=== PATIENT | male | born 1950 | race Caucasian/White ===

== ENCOUNTER 2018-06-28 10:21 | Day surgery (SDC) | payer BC, OTHER ==
[~2018-06-28] VITALS: Ht 185.4 cm; Wt 83.0 kg
[2018-06-28] MEDS ORDERED: POLYMYXIN 500,000/BACIT.10,000 UNITS in NS IRR 1 L IR ONE (11:54)
[2018-06-28] MEDS ORDERED: LR 1,000 ML IV SCH (12:24)
[2018-06-28] MEDS ORDERED: HYDROcodone/ACETAMIN 5-325 MG TAB (NORCO/ VICODIN) PO PRN (12:30)
[2018-06-28] MEDS ORDERED: MORPHINE 4 MG/ML INJ. SYRINGE IVP PRN ×3 (12:30)
[2018-06-28] MEDS ORDERED: METOCLOPRAMIDE HCL 10 MG/2 ML VIAL IVP PRN (12:30)
[2018-06-28] MEDS ORDERED: SEVOFLURANE 15 MIN GAS INH ONE (12:40)
[2018-06-28] MEDS ORDERED: fentaNYL CITRATE/PF 100 MCG/2 ML AMP ONE (12:40)
[2018-06-28] MEDS ORDERED: CEFAZOLIN 1 GM IVPB PREMIX 50 ML IV ONE (12:40)
[2018-06-28] MEDS ORDERED: GLYCOPYRROLATE 0.2 MG/ML VIAL ONE (12:40)
[2018-06-28] MEDS ORDERED: NEOSTIGMINE METHYLSULFATE 1 MG/ML, 10 ML VIAL ONE (12:40)
[2018-06-28] MEDS ORDERED: NS 250 ML IV.SOLN IV ONE (12:40)
[2018-06-28] MEDS ORDERED: DEXAMETHASONE SOD PHOSPHATE 4 MG/ML VIAL ONE (12:40)
[2018-06-28] MEDS ORDERED: LIDOCAINE/EPI 1% 1:100000 20 ML VIAL INJ ONE (12:40)
[2018-06-28] MEDS ORDERED: OXYMETAZOLINE HCL 0.05% NASAL SPRAY NS ONE (12:40)
[2018-06-28] MEDS ORDERED: ONDANSETRON HCL 4 MG/2 ML VIAL ONE (12:40)
[2018-06-28] MEDS ORDERED: MIDAZOLAM HCL 5 MG/ML VIAL (VERSED) IV ONE (12:40)
[2018-06-28] MEDS ORDERED: PROPOFOL 200MG/ 20ML VIAL (DIPRIVAN) IV ONE (12:40)
[2018-06-28] MEDS ORDERED: BACITRACIN 1 GM OINT TP ONE (12:40)
[2018-06-28] MEDS ORDERED: LR 1,000 ML IV.SOLN IV ONE (12:40)
[2018-06-28] MEDS ORDERED: ROCURONIUM BROMIDE 10 MG/ML (ZEMURON) ONE (12:40)
[2018-06-28] MEDS ORDERED: NS IRRIG SOLN 1000 ML IR ONE (12:40)
[2018-06-28] MEDS ORDERED: PHENYLEPHRINE HCL 10 MG/ML VIAL (NEOSYNEPHRINE) ONE (12:40)
[2018-06-28] MEDS ORDERED: MORPHINE SULFATE 10 MG/ML VIAL ONE (13:51)
[2018-06-28 13:59] VITALS: BP_SYST 127
[2018-06-28] MEDS ORDERED: HYDROcodone/ACETAMIN 5-325 MG TAB (NORCO/ VICODIN) ONE (14:40)
== END 2018-06-28 15:25 | disposition home or self-care (01) ==
LOC: SDS 10:21 → SMU 10:21 → SDS 15:25
PROVIDERS: ATTEND Otolaryngology Plastic Surgery within the Head & Neck
DX: J32.9 Chronic sinusitis, unspecified (principal); Z98.890 Other specified postprocedural states; F17.290 Nicotine dependence, other tobacco product, uncomplicated; G62.9 Polyneuropathy, unspecified
CPT/HCPCS: 31254; 31287; 71046; 88305; 88311; J0690; J1100; J2250; J2270; J2370; J2405; J2704; J2710; J3010; J3490; J7050; J7120